=== PATIENT | male | born 1945 | race Caucasian/White ===

== ENCOUNTER 2021-08-13 09:05 | Emergency (ER) | payer MEDICARE, OTHER ==
[~2021-08-13] VITALS: Ht 167.6 cm; Wt 77.2 kg
[~2021-08-13 09:05] MED LIST: GLU500 PO; HYDR25TA32 PO; IBUP-974 PO; OMEP20TC10 PO
[2021-08-13 09:11] VITALS: BP 116/67
--- NOTE | 2021-08-13 09:21 | NUR ---
AMBULATED TO ER BED 3
--- NOTE | 2021-08-13 10:01 | NUR ---
75 Y/O M BIB SELF FROM HOME, PATIENT PRESENTS TO ED WITH ABD PAIN FOR 1 MONTH. UPON ASSESSMENT, PT HAS ROUNDED, FIRM, NON TENDER WITH PALPTATION. DENIES N/V/D; SKIN IS PINK/WARM/DRY; AAOX4 WITH EVEN AND STEADY GAIT; LUNGS CLEAR BL; HR EVEN AND REGULAR; PT DENIES ANY FEVER, CP, SOB, OR COUGH AT THIS TIME; PATIENT STATES PAIN OF 7/10 AT THIS TIME; VSS; PATIENT POSITIONED FOR COMFORT; HOB ELEVATED; BEDRAILS UP X2; BED DOWN. ER MD MADE AWARE OF PT STATUS. PMH: DM2, HTN NKA
[2021-08-13] MEDS ORDERED: FUROSEMIDE 40 MG/4 ML VIAL IVP ONE (10:05)
--- NOTE | 2021-08-13 10:31 | NUR ---
X-Ray at bedside.
--- NOTE | 2021-08-13 10:33 | NUR ---
LABS DRAWN FROM IV AND GIVEN TO DEVIKA BLANCO
[2021-08-13 11:07] LABS: BASOPHILS % (AUTO) 0.5 % (0.0-2.0); EOSINOPHILS # (AUTO) 0.1 K/uL (0-0.4); EOSINOPHILS % (AUTO) 2.2 % (0.0-4.0); HEMATOCRIT 38.1 % (36-52); HEMOGLOBIN 13.4 g/dL (12.0-18.0); LYMPHOCYTES # (AUTO) 1.2 K/uL (2.0-11.5); LYMPHOCYTES % (AUTO) 18.5 % (20.5-51.1); MEAN CORPUSCULAR HEMOGLOBIN 35 pg (27-31); MEAN CORPUSCULAR HGB CONC 35 g/dL (33-37); MEAN CORPUSCULAR VOLUME 98.9 fL (80-94); MONOCYTES # (AUTO) 0.7 K/uL (0.8-1.0); NEUTROPHILS # (AUTO) 4.6 K/uL (1.8-7.7); NEUTROPHILS % (AUTO) 68.8 % (42.2-75.2); PLATELET COUNT (AUTO) 104 K/uL (140-450); RED BLOOD CELL COUNT(AUTO) 3.85 MIL/uL (4.20-6.10); RED CELL DISTRIBUTION WIDTH 13.5 % (11.6-13.7); WHITE BLOOD COUNT (AUTO) 6.7 K/uL (4.8-10.8)
[2021-08-13 11:13] LABS: ALBUMIN 2.7 g/dL (3.4-5.0); AMYLASE 29 U/L (25-115); ANION GAP 12.5 (8-16); ASPARTATE AMINOTRANSFERASE 65 U/L (15-37); CARBON DIOXIDE 24.4 mmol/L (21-32); CHLORIDE 101 mmol/L (98-107); CREATININE 1.5 mg/dL (0.6-1.3); GLUCOSE 92 mg/dL (74-106); LIPASE 86 U/L (73-393); POTASSIUM 4.9 mmol/L (3.5-5.1); SODIUM SERUM 133 mmol/L (136-145); TOTAL BILIRUBIN 3.3 mg/dL (0.0-1.0); UREA NITROGEN, BLOOD 28 mg/dL (7-18)
--- NOTE | 2021-08-13 13:40 | NUR ---
UA COLLECTED VIA URINAL
[2021-08-13] MEDS ORDERED: VANCOMYCIN 1,000 MG in DEXTROSE 5% 250 ML IV ONE (14:30)
[2021-08-13] MEDS ORDERED: VANCOMYCIN 1,000 MG VIAL ONE (15:08)
[2021-08-13] MEDS ORDERED: cefTRIAXone 1,000 MG VIAL ONE (15:08)
--- NOTE | 2021-08-13 16:23 | NUR ---
Patient to be transferred to [facility]. Is being transferred due to INSURANCE REQUEST. Receiving facility has accepting physician and available space. ER physician has signed transfer form. Patient or responsible green party has agreed to transfer and signed form. Patient belongings inventoried and will be sent with patient. Copy of nursing notes, lab reports, EKG, Physicians Orders and X-rays to be sent with patient. Report called to KAYLA TERRY at receiving facility. [facility] ambulance service has been called for transfer. ETA is 1800.
--- NOTE | 2021-08-13 19:22 | NUR ---
[facility] HERE TO TRANSPORT PT AT THIS TIME.
[2021-08-13 19:23] VITALS: BP 98/63
--- NOTE | 2021-08-13 19:32 | NUR ---
PT TAKEN BY TRANSPORT
== END 2021-08-13 19:32 | disposition short-term general hospital (02) ==
LOC: MED 09:05
DX: E80.6 Other disorders of bilirubin metabolism (principal); Z20.822 Contact with and (suspected) exposure to COVID-19; K80.20 Calculus of gallbladder without cholecystitis without obstruction; R18.8 Other ascites; K56.7 Ileus, unspecified; E11.9 Type 2 diabetes mellitus without complications; I10 Essential (primary) hypertension; Z79.899 Other long term (current) drug therapy
CPT/HCPCS: 36415; 71045; 74177; 76705; 80053; 82150; 83690; 83880; 84484; 85025; 87040; 87426; 93005; 96365; 96366; 96368; 96375; 99285; J0696; J1940; J3370; Q0092; Q9967

== ENCOUNTER 2021-09-08 10:56 | Emergency (ER) | payer MEDICARE ==
[~2021-09-08] VITALS: Ht 167.6 cm; Wt 72.6 kg
[2021-09-08 11:05] VITALS: BP 119/76
--- NOTE | 2021-09-08 11:14 | NUR ---
PT AMB TO BED 12.
--- NOTE | 2021-09-08 11:45 | NUR ---
75 y/o M BIB self from PCP referral for abdominal distention and pain. Patient A&Ox4, ambulatory, states referred from GI specialist for ER evaluation of abdominal pain and distention x 1 month that has been woresening. Pt also presents with bilateral LE swelling L>R x 2-3 months. Patient noted with round/firm abdomen with RLQ 7/10, pinching/intermittent, non-radiating and non-tender to palpation. Patient also states constipation x 1 week, eating fluids and food OK now. Denies chest pain, nausea, vomitnig, diarrhea, fever, chills, cough, dysuria. States Ibuprofen 800mg this morning with relief to pain. Pt placed onto cardiac tech and gown. Bed locked in lowest position, side rails x 1, call light in reach. PMH: DM2, ascites, cirrhosis Meds: Denies NKA Sx: tonsil removal
--- NOTE | 2021-09-08 11:50 | NUR ---
Dr. Hudson is evaluating patient at bedside
--- NOTE | 2021-09-08 12:00 | NUR ---
RAD at bedside
--- NOTE | 2021-09-08 12:12 | NUR ---
Lab at bedside
[2021-09-08 12:25] LABS: BASOPHILS % (AUTO) 0.7 % (0.0-2.0); EOSINOPHILS # (AUTO) 0.2 K/uL (0-0.4); EOSINOPHILS % (AUTO) 3.5 % (0.0-4.0); HEMATOCRIT 43.1 % (36-52); HEMOGLOBIN 14.5 g/dL (12.0-18.0); LYMPHOCYTES # (AUTO) 1.6 K/uL (2.0-11.5); LYMPHOCYTES % (AUTO) 25.6 % (20.5-51.1); MEAN CORPUSCULAR HEMOGLOBIN 34 pg (27-31); MEAN CORPUSCULAR HGB CONC 34 g/dL (33-37); MEAN CORPUSCULAR VOLUME 100.6 fL (80-94); MONOCYTES # (AUTO) 0.7 K/uL (0.8-1.0); MONOCYTES % (AUTO) 10.8 % (1.7-9.3); NEUTROPHILS # (AUTO) 3.7 K/uL (1.8-7.7); NEUTROPHILS % (AUTO) 59.4 % (42.2-75.2); PLATELET COUNT (AUTO) 146 K/uL (140-450); RED BLOOD CELL COUNT(AUTO) 4.28 MIL/uL (4.20-6.10); WHITE BLOOD COUNT (AUTO) 6.2 K/uL (4.8-10.8)
[2021-09-08 13:18] LABS: ALBUMIN 2.8 g/dL (3.4-5.0); ANION GAP 13.2 (8-16); ASPARTATE AMINOTRANSFERASE 57 U/L (15-37); CARBON DIOXIDE 23.7 mmol/L (21-32); CHLORIDE 107 mmol/L (98-107); CREATININE 1.4 mg/dL (0.6-1.3); GLUCOSE 140 mg/dL (74-106); POTASSIUM 3.9 mmol/L (3.5-5.1); SODIUM SERUM 140 mmol/L (136-145); TOTAL BILIRUBIN 2.6 mg/dL (0.0-1.0); UREA NITROGEN, BLOOD 23 mg/dL (7-18)
[2021-09-08 13:32] LABS: PROTHROMBIN TIME 12.3 secs (10.8-13.4)
--- NOTE | 2021-09-08 13:37 | NUR ---
Patient asleep in position of comfort. quality assurance monitor chassis in place. VSS; respirations even/unlabored. Bed locked in lowest position, side rails x 1, call light in reach. [place] provided per request
[2021-09-08] MEDS ORDERED: LACT10SO86 PO (14:14)
[2021-09-08] MEDS ORDERED: SPIR50TA PO (14:14)
[2021-09-08 14:42] VITALS: BP 105/77
--- NOTE | 2021-09-08 14:42 | NUR ---
Patient discharged with v/s stable. Written and verbal after care instructions given and explained. Patient alert, oriented and verbalized understanding of instructions. Ambulatory with steady gait. All questions addressed prior to discharge. ID band removed. Patient advised to follow up with PMD. Rx of Lactulose, Aldactone given. Patient educated on indication of medication including possible reaction and side effects. Opportunity to ask questions provided and answered.
== END 2021-09-08 14:42 | disposition home or self-care (01) ==
LOC: MED 10:56
DX: N04.9 Nephrotic syndrome with unspecified morphologic changes (principal); K74.69 Other cirrhosis of liver; E11.9 Type 2 diabetes mellitus without complications; I10 Essential (primary) hypertension
CPT/HCPCS: 36415; 71045; 80053; 83880; 84484; 85025; 85610; 85730; 93005; 99285; Q0092